=== PATIENT | female | born 1980 | race Caucasian/White ===

== ENCOUNTER 2018-09-12 11:08 | Inpatient (IN) ==
[2018-09-12] MEDS ORDERED: PHENERGAN IM ONE (12:20)
[2018-09-12] MEDS ORDERED: NS 1,000 ML IV ONE ×3 (12:20→16:54)
[2018-09-12] MEDS ORDERED: ZOFRAN IV ONE (14:18)
[2018-09-12] MEDS ORDERED: DILAUDID IV ONE (14:18)
[2018-09-12 14:21] LABS: BASO# 0.02 X1000 (0.0-0.2); BASO% 0.1 % (0.0-0.8); EOS# 0.01 X1000 (0.0-0.7); EOS% 0.1 % (0.0-10.0); HEMOGLOBIN 17.2 g/dL (12.0-16.0); IMM GRAN# 0.05 X1000 (0.0-0.04); IMM GRAN% 0.3 % (0.0-0.5); LYMPH# 1.03 X1000 (1.2-3.4); LYMPH% 6.3 % (20.5-51.1); MCH 30.7 PG (27-31); MCHC 33.1 g/dL (33-37); MCV 92.9 FL (81-99); MONO# 0.87 X1000 (0.11-0.59); MONO% 5.3 % (1.7-9.3); MPV 10.3 FL (7.4-10.4); NEUT# 14.39 X1000 (1.4-6.5); NEUT% 87.9 % (42.2-75.2); PLT 510 X1000 (130-400); RDW 13.9 % (11.5-14.5); WBC 16.37 X1000 (4.8-10.8)
[2018-09-12 14:53] LABS: ALBUMIN 5.2 g/dL (3.5-5.0); CALCIUM 9.7 mg/dL (8.8-10.2); CREATININE 5.7 mg/dL (0.5-0.9); POTASSIUM 3.4 mmol/L (3.5-5.1); TOTAL BILIRUBIN 0.83 mg/dL (0.20-1.00); TOTAL PROTEIN 10.6 g/dL (6.3-8.3)
--- NOTE | 2018-09-12 15:38 | PROVIDER DOCUMENTATION ---
This chart was entered by Janice Watkins Scribe, acting as scribe for Shashank Sorto MD. HPI-General Adult - General Chief Complaint: Nausea/Vomiting Stated Complaint: VOMITING Time Seen by Provider: 09/12/18 11:42 Source: patient Allergies/Adverse Reactions: Patient Allergies Allergy/AdvReac Type Severity Reaction Status Date / Time TIME RELEASE COATING Allergy Unknown Uncoded 09/09/18 20:15 Home Medications: Home Medication List Medication Instructions Recorded Confirmed Last Taken Type Hydrocodone/Acetaminophen [[place] 1 each PO PRN PRN 07/18/17 07/18/17 07/18/17 10:00 History 10-325 Tablet] 1/2 TAB L.acidoph,Paracasei, B.lactis 1 each PO QPM 07/18/17 07/18/17 07/17/17 History [Probiotic] Multivitamin [Multivitamins] 1 each PO QPM 07/18/17 07/18/17 07/17/17 History Norethindrone-E.estradiol-Iron 1 each PO QPM 07/18/17 07/18/17 07/17/17 History [Nik Fe 1.5-30 Tablet] Omeprazole 20 mg PO QPM 07/18/17 07/18/17 07/17/17 History Ondansetron HCl [Zofran] 4 mg PO PRN PRN 07/18/17 07/18/17 07/18/17 15:00 History Promethazine [Phenergan] 25 mg PO Q6H PRN PRN 07/18/17 07/18/17 07/18/17 15:30 History - History of Present Illness -Gen Adult Nature of Presenting Problems: 37 y/o female presents to ED with N/V, headache, body aches, and dehydration onset 4 days ago. Pt reports she was seen 3 days ago for same and given fluids. Pt states she felt better afterwards, but got worse again 2 days ago. 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 Pt is alert and oriented. Location of Pain/Injury: reports: generalized Pain Radiation: reports: no radiation Quality of Pain: reports: aching Severity: reports: mild, moderate Onset/Duration: reports: 4 days ago Timing: reports: still present, getting worse Context/Activities at Onset: reports: none Modifying Factors: improves with: nothing Associated Symptoms: reports: headaches, nausea, vomiting, other (body aches; dehydration) Similar Symptoms Previously?: No Recently seen or treated by another doctor?: Yes (ED for same 3 days ago) Review of Systems - Adult - REVIEW OF SYSTEMS - ADULT Constitutional: reports: other (dehydration). denies: chills, fever Eyes: reports: no symptoms reported Ears, Nose, Mouth & Throat: reports: no symptoms reported Cardiovascular: denies: chest pain, palpitations Respiratory: reports: no symptoms reported Gastrointestinal: reports: nausea, vomiting. denies: abdominal pain, diarrhea Genitourinary: reports: no symptoms reported Musculoskeletal: reports: other (body aches). denies: back pain, joint pain Integumentary: reports: no symptoms reported Neurological: reports: headache/migraines. denies: dizziness/vertigo, seizure Psychiatric: reports: no symptoms reported Endocrine: reports: no symptoms reported Hematologic/Lymphatic: reports: no symptoms reported Allergic/Immunologic: reports: no symptoms reported All Other Systems: Reviewed and Negative Past History - Adult - PAST MEDICAL HISTORY-ADULT Review of Records: reports: Old Records Reviewed, Nursing Assessment Review, Medications Reviewed Major Childhood Illnesses: reports: denies history Cardiovascular: reports: denies history Respiratory: reports: denies history Gastrointestinal: reports: denies history, colitis, IBS Obstetrical/Gynecological: reports: denies history Genitourinary: reports: denies history Musculoskeletal: reports: denies history Neurological: reports: denies history Psychiatric: reports: denies history Endocrine/Immune: reports: denies history Other Conditions: reports: denies history - PRIOR SURGERIES/PROCEDURES Surgical/Procedure History: reports: appendectomy, other (ileostomy) - IMMUNIZATION STATUS Childhood Immunizations: See Nurse Assessment Flu Vaccine: See Nurse Assessment - FAMILY HISTORY Family History: reviewed, not pertinent - SOCIAL HISTORY Smoking: non-smoker Substance Use: none/never Alcohol Use Frequency: occasionally Living Situation: family Physical Exam-General - PHYSICAL EXAM-ADULT Initial Vital Signs Reviewed: Yes - CONSTITUTIONAL General Appearance: appears well, alert, no apparent distress - EYES Eyes: PERRL/EOMI, pink conjunctivae - HEAD, EARS, NOSE, MOUTH & THROAT HENMT: normocephalic/atraumatic, moist mucous membranes, normal ENT inspection - NECK Neck: non-tender, full range of motion - RESPIRATORY Respiratory: chest non-tender, lungs clear, normal breath sounds - CARDIOVASCULAR Cardiovascular: tachycardia - GASTROINTESTINAL (ABDOMEN) Abdominal Exam: normal bowel sounds, non tender, soft, other (ileostomy in place) - MUSCULOSKELETAL Back Exam: normal inspection, no CVA tenderness Extremity: normal range of motion, non-tender, normal gait - SKIN Integumentary: normal color, warm/dry - NEUROLOGIC Neurologic: grossly normal - PSYCHIATRIC Psych/Mental Status: normal mood/affect, normal thought content, normal thought process Progress - PLAN OF CARE/RESULTS Progress/Plan/Lab Results: Vital Signs - 8 hr 09/12/18 11:31 09/12/18 11:45 09/12/18 12:13 Temperature 98.0 F Pulse Rate 93 H 135 H Respiratory Rate 18 22 Blood Pressure 151/141 O2 Sat by Pulse Oximetry 98 09/12/18 11:50 Influenza Screen - Final Nasopharyngeal Orders Category Date Time Status Nursing- Obtain EKG ONCE Care 09/12/18 12:18 Active CBC WITH ELECTRONIC DIFF [HEME] Stat Lab 09/12/18 11:36 Uncollected CMP [COMPREHENSIVE METABOLIC PANEL] [CHEM] Stat Lab 09/12/18 11:36 Uncollected Flu Swab [INFLUENZA SCREEN A/B] Stat Lab 09/12/18 11:50 Completed 0.9% Sodium Chloride Inj [Ns] 1,000 ml Med 09/12/18 12:20 Active IV 999 mls/hr Promethazine [Phenergan] Med 09/12/18 12:20 Discontinued 25 mg IM NOW ONE EKG [EKG] Stat Ther 09/12/18 12:18 Ordered Influenza A and B are negative. Laboratory Tests 09/12/18 09/12/18 13:56 13:56 WBC 16.37 H RBC 5.60 H Hgb 17.2 H Hct 52.0 H MCV 92.9 MCH 30.7 MCHC 33.1 RDW Std Deviation 13.9 Plt Count 510 H MPV 10.3 Immature Gran % (Auto) 0.3 Neut % (Auto) 87.9 H Lymph % (Auto) 6.3 L [place] % (Auto) 5.3 Eos % (Auto) 0.1 Baso % (Auto) 0.1 Immature Gran # (Auto) 0.05 H Neut # (Auto) 14.39 H Lymph # (Auto) 1.03 L [place] # (Auto) 0.87 H Eos # (Auto) 0.01 Baso # (Auto) 0.02 Sodium 131 L Potassium 3.4 L Chloride 87 L Carbon Dioxide 15 L Anion Gap 29 BUN 44 H Creatinine 5.7 H Estimated GFR/1.73 m2 8 BUN/Creatinine Ratio 8 Glucose 142 H Calculated Osmolality 276 Calcium 9.7 Total Bilirubin 0.83 AST 21 ALT 25 Alkaline Phosphatase 110 H Total Protein 10.6 H Albumin 5.2 H Globulin 5.4 Albumin/Globulin Ratio 1.0 Result Diagrams: 09/12/18 13:56 09/12/18 13:56 - EKG 1 Time of EKG reading by physician:: 12:26 EKG Read and Signed by:: Shashank Sorto EKG Interpretation (*Must complete 3 of following elements*): Abnormal Rate: 125 Rhythm: Sinus tach Felch: right QRS: other (R atrial enlargement; pulmonary disease pattern) [place] Interval: normal ST Wave: normal - CONSULTS/PCP/HOSPITALIST Notification #1 *Consult/PCP/Hospitalist*: Hospitalist- Dr. Leary Time Discussed: 15:37 Reason/Comments: Acute renal insufficiency Consult Disposition: Admit Departure - Departure Date of Disposition Decision: 09/12/18 Time of Disposition Decision: 15:05 DIAGNOSIS: Dehydration, Acute renal insufficiency, History of ulcerative colitis Vomiting Qualifiers: Vomiting type: unspecified Vomiting Intractability: intractable Nausea presence: unspecified Qualified Code(s): R11.10 - Vomiting, unspecified Disposition: ADMITTED INPATIENT 09 Certified Medical Emergency: Emergent Condition: Stable Additional Freetext Instructions: ED Follow Up Instructions: You have been treated by a care provider in the Emergency Department. These instructions are being provided to you so you can have an understanding of how to care for yourself upon discharge. Upon discharge from the Emergency Department, you are responsible for making arrangements for follow-up care by a physician of your choice. Take all prescribed medications as directed. Return to the Emergency Department immediately for any new or worsening s ymptoms. You may call the Physician Referral phone number at [phone] to obtain a list of Physicians who are taking new patients. Referrals and Follow-Ups: None,PCP [Primary Care Provider] - Discharge Education: Dehydration, Adult, Onyd-cl-Glbu, Vomiting, Adult, Ulcerative Colitis, Adult - Critical Care Note This patient required my direct & personal management of CC.: No Attestation - Physician/ JULIO CESAR Attestation Patient care was provided by Advanced Practice Provider:: No The physician spent face to face time with patient:: Yes Advanced Practice Provider documentation review:: Supervising physician onsite and consulted in the evaluation and care of this patient. The physician did have a face to face encounter with the patient. This chart was documented by the indicated scribe, (Janice Watkins, Katya) and accurately reflects the services I performed and decisions made by me, Shashank Sorto MD, as attested by the provider's signature.
--- NOTE | 2018-09-12 16:21 | Diag Imaging Result Doc PS360 ---
EXAM: FLAT/UPRIGHT ABD/1 VIEW CHEST 09/12/2018 HISTORY: intractable n/v TECHNIQUE: Flat and upright abdomen with AP chest, portable COMMENT: There is some gas in the distal colon. There is no evidence of gastric or small bowel dilatation. There is no evidence of organomegaly or mass. There is an apparent Jose's lobe of the liver. Compared to the previous study of 07/18/2017 there has been no significant change. There is hyperinflation of the lungs. There is apparent apical pleural thickening particularly on the left. The heart size and pulmonary vascularity are within normal limits. IMPRESSION: No evidence of acute disease. Electronically signed by Tesfaye Spann 09/12/2018 4:18 PM
[2018-09-12] MEDS ORDERED: ZOFRAN IV PRN (16:56)
[2018-09-12] MEDS ORDERED: MAGNESIUM SULFATE 2 GM/S.W.I. 2 GM/50 ML IVPB IV ONE ×2 (17:14→23:00)
--- NOTE | 2018-09-12 18:12 | Diag Imaging Result Doc PS360 ---
EXAM: US RENAL 2 (RETROPER) COMPLETE 09/12/2018 HISTORY: elder TECHNIQUE: Renal ultrasound COMMENT: The kidneys are slightly hyperechoic. There is no evidence of hydronephrosis or mass and no definite stones are present. The right kidney is 9.3 x 4.1 x 3.6 cm the left is 9.1 x 4.0 x 4.5 cm. The urinary bladder is not distended. IMPRESSION: Possible medical renal disease. No evidence of obstructive uropathy. Electronically signed by Tesfaye Spann 09/12/2018 6:09 PM
[2018-09-12] MEDS: HEPARIN SUBQ SCH (18:16)
[2018-09-12] MEDS: KLOR-CON PO SCH ×2 (18:16→23:40)
--- NOTE | 2018-09-12 22:52 | HISTORY AND PHYSICAL ---
CHIEF COMPLAINT: Nausea, vomiting, increased ileostomy output reported to be watery since about 4 days duration. HISTORY OF PRESENT ILLNESS: Ms. Sorto is 37 years old lady with past history of inflammatory bowel disease, ulcerative colitis diagnosed 20 years ago status post total colectomy, who comes in with complaints of nausea, vomiting, increase ileostomy output since 4 days. 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 She also has started having increased ileostomy output. Considering her concern, she came to the emergency room and she was given intravenous fluids and was sent home. However yesterday patient started eating solid food and her complaints recurred to an extent that she again had about 5 episodes of vomiting yesterday, 2 episodes today with increased ileostomy output. Her vomiting episodes contained undigested food particle, mucus and yellowish to greenish bile without any blood. Her ileostomy output was clear watery. However by the time she presented to emergency room today, it has started thickening up and appears greenish. She did not notice any blood in the ileostomy. The patient tried taking Imodium 1st and then Lomotil but her ileostomy output did not decrease significantly and so she considered coming to the emergency room knowing that she had previous such episodes in the past requiring intravenous fluid resuscitation and inpatient hospitalization. The patient denies fevers, chills, any blood in vomit or stool. 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 She denies known history of diabetes, coronary artery disease or cancer. REVIEW OF SYSTEMS: Positive for headache, sunken eyeballs, muscle cramps, abdominal cramps and decreased urine output. Negative for palpitation, negative for shortness of breath, negative for icterus. PAST MEDICAL HISTORY: 1. Ulcerative colitis diagnosed around year 1999 through colonoscopy, biopsy and blood test status post total colectomy and ileostomy about 15 years ago . 2. Past history of gastroesophageal reflux disease on proton pump inhibitors occasionally. 3. Denies past history of known coronary artery disease. 4. Denies past history of lung disease. 5. Denies past medical history of any liver disease . 6. Past history of similar episodes with acute renal failure requiring intravenous fluid resuscitation. SURGICAL HISTORY: She had total colectomy and ileostomy, she also had an abdominal wall abscess requiring surgical incision and drainage. FAMILY HISTORY: Significant for mother having history of ulcerative colitis . ALLERGIES: No known allergy. SOCIAL HISTORY: Denies any smoking or tobacco use. Occasional alcohol use. Denies recreational drug use. VITALS: Currently temperature of 98, pulse 110, respiratory rate 18, blood pressure 96/66, saturating 100% on room air. PHYSICAL EXAMINATION: Patient appears dehydrated. She has sunken eyeballs, cold clammy extremities with mild cyanosis of bilateral hands and legs. Oral cavity is dry. Air entry bilateral equal. No wheeze, rhonchi, crackles. S1, S2 normal. No murmur, rub, or gallop. Tachycardic, regular. ABDOMEN: Soft, nontender. She has an ileostomy which has greenish liquidy output and gas. Active bowel sounds. No lower extremity edema. NEUROLOGIC: Alert and oriented x3. LABS: Leukocytosis of 16,000, hemoglobin of 17.2, platelet count of 510,000, hyponatremia, hypokalemia, hypochloremia, increased anion gap metabolic acidosis, acute kidney injury. Microbiology, influenza screen is negative. IMAGING: Abdominal x-ray did not detect any evidence of acute disease . EKG is not in the chart yet. ASSESSMENT AND PLAN: 1. 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 She does not have any recent travel history or contaminated ingestion of food and she cooks her own meals. I will continue intravenous fluid resuscitation and monitor in [facility]. 2. Acute viral gastroenteritis with profound volume depletion. I will give her 3 L of intravenous fluid boluses and would start her on normal saline at 150 mL/h. The patient has poor intravenous access. However, she is hesitant on getting a central line access. I discussed the plan with the nursing team about again trying another IV access about 2 hours after intravenous fluid resuscitation. If she does not have good IV access we might have to consider central line at that point. The patient does not want to get urine catheter placed and I counseled her about keeping a close eye over input and output and monitoring her urine output. Once we have good IV access I will get the blood cultures. However, my suspicion for septicemia is less considering history and possible viral etiology. She did not have any fever, leukocytosis could be in the setting of acute viral gastroenteritis. 3. Acute tubular necrosis. Follow up with urine when she is able to make. Will follow up with urine electrolytes, renal ultrasound. Will follow up with frequent BMP and electrolytes, I will replete potassium and magnesium for profound hypokalemia. 4. Hemoconcentration with leukocytosis. Increase hemoglobin, increased platelet. I will follow up with CBC tomorrow. 5. Other problems. Hyponatremia, hypochloremia, increased anion gap metabolic acidosis in setting of acute kidney injury and acute tubular necrosis, aware. Chronic gastroesophageal reflux disease. I will start patient on pantoprazole. 6. Disposition. The patient will be transferred to [facility]. Plan of care discussed with the patient and her at bedside. All of the questions have been answered. cc: Kurt Leary MD
[2018-09-12] MEDS: NS 1,000 ML IV SCH ×2 (23:41→23:53)
[2018-09-13 00:41] LABS: CALCIUM 7.6 mg/dL (8.8-10.2); CREATININE 3.2 mg/dL (0.5-0.9); POTASSIUM 3.9 mmol/L (3.5-5.1)
[2018-09-13] MEDS: HEPARIN SUBQ SCH ×3 (03:29→19:26)
[2018-09-13 06:58] LABS: BASO# 0.01 X1000 (0.0-0.2); BASO% 0.1 % (0.0-0.8); EOS# 0.11 X1000 (0.0-0.7); EOS% 1.3 % (0.0-10.0); HEMATOCRIT 38.7 % (37.0-47.0); HEMOGLOBIN 12.8 g/dL (12.0-16.0); IMM GRAN# 0.03 X1000 (0.0-0.04); IMM GRAN% 0.3 % (0.0-0.5); LYMPH# 1.61 X1000 (1.2-3.4); LYMPH% 18.4 % (20.5-51.1); MCH 30.9 PG (27-31); MCHC 33.1 g/dL (33-37); MCV 93.5 FL (81-99); MONO# 0.75 X1000 (0.11-0.59); MONO% 8.6 % (1.7-9.3); MPV 10.2 FL (7.4-10.4); NEUT# 6.26 X1000 (1.4-6.5); NEUT% 71.3 % (42.2-75.2); PLT 331 X1000 (130-400); RBC 4.14 XMIL (4.2-5.4); RDW 13.4 % (11.5-14.5); WBC 8.77 X1000 (4.8-10.8)
[2018-09-13 07:38] LABS: MAGNESIUM 2.8 mg/dL (1.5-2.7)
[2018-09-13] MEDS: NS 1,000 ML IV SCH ×3 (08:29→21:47)
[2018-09-13] MEDS ORDERED: KLOR-CON PO ONE ×2 (09:33→19:45)
[2018-09-13 10:20] LABS: URINE SOURCE CLEAN CATCH
[2018-09-13 10:29] LABS: BILIRUBIN URINE NEGATIVE (NEGATIVE); BLOOD URINE SMALL (NEGATIVE); COLOR YELLOW; GLUCOSE URINE NEGATIVE (NEGATIVE); KETONE URINE NEGATIVE (NEGATIVE); LEUKOCYTES URINE MODERATE (NEGATIVE); NITRITE URINE NEGATIVE (NEGATIVE); PH URINE 6.5; PROTEIN URINE TRACE mg/dL (NEGATIVE); SP GRAVITY URINE 1.012; TURBIDITY URINE CLEAR (CLEAR); UR EPITHELIAL CELLS <10 /HPF (<10); URINE BACTERIA NEGATIVE /HPF; URINE RBC <10 /HPF (<10); URINE WBC <10 /HPF (<10); UROBILINOGEN URINE NORMAL (NORMAL)
--- NOTE | 2018-09-13 11:19 | PROGRESS NOTE ---
DATE: 09/13/2018 INTERVAL HISTORY: Her kidney function had started improving overnight. SUBJECTIVE: The patient is feeling significantly better today. She was able to go to the bathroom and come back. She asked if I could discontinue telemetry so that she can move around better. We discussed about her improving kidney function, improving electrolyte, improving blood counts. I answered all of her questions. Her is at bedside as well. OBJECTIVE: General: The patient does not appear in any acute distress. Vitals: Currently, temperature 98.2 degrees, pulse 85, respiratory rate 16, blood pressure 90/50, saturating 100% on room air. HEENT: Her eyeballs are no longer sunken. Her oral cavity is moist. Lungs: Air entry bilaterally equal. No wheeze, rhonchi, crackles. Cardiac: S1, S2 normal. Not tachycardic. No murmur, rub, or gallop. Abdomen: Soft. There is an ileostomy which has liquidy greenish output. Active bowel sounds. Extremities: No lower extremity edema. Skin: Turgor has increased as well. LABORATORIES: Suggestive of no leukocytosis with a WBC of 8000, hemoglobin of 12.8, platelet count of 331,000, normal coagulation profile. Electrolytes suggestive of hyponatremia, hypochloremia, which is better than yesterday. Resolution of hypokalemia, decreasing anion gap, improving bicarbonate, improving acute kidney injury, hypocalcemia, hypophosphatemia. MICROBIOLOGY: Urine culture is in lab. However, patient did not have any symptoms and urinalysis though had moderate leukocytes. I will not treat it since the patient was asymptomatic. ASSESSMENT AND PLAN: 1. Sepsis due to acute gastroenteritis, currently improving. Her tachycardia leukocytosis has improved. I will continue intravenous fluid resuscitation. Unfortunately, she was transferred to surgical floor rather than [facility] last night. Currently, she looks hemodynamically stable and I will monitor her on surgical floor. 2. Acute viral gastroenteritis with profound volume depletion. She received 3 L of intravenous fluid boluses yesterday. I will continue normal saline at 150 mL/hour. 3. Acute tubular necrosis likely in the setting of profound volume depletion and acute kidney injury. Continue intravenous fluid resuscitation and frequent monitoring of electrolytes with kidney function. 4. Profound electrolyte abnormality, including hyponatremia, hypokalemia, hypochloremia, hypomagnesemia, hypophosphatemia, being repleted. I will follow up with [facility]. OTHER PROBLEMS: Chronic GERD, aware. Patient was only taking intermittent proton pump inhibitors at home. I will continue morphine as needed for abdominal pain, heparin subcutaneous for deep vein thrombosis prophylaxis and p.r.n. Zofran. I will advance her diet to a full liquid diet today and will advance it further tomorrow if needed. Plan of care discussed with her. All of her questions have been answered satisfactorily. cc: Kurt Leary MD
[2018-09-13 11:53] LABS: UR CREAT RANDOM 130.8 mg/dL (11-20)
[2018-09-13 12:12] LABS: UR SODIUM < 10 mmoll
[2018-09-13 15:18] LABS: CALCIUM 7.6 mg/dL (8.8-10.2); CREATININE 1.5 mg/dL (0.5-0.9); POTASSIUM 3.3 mmol/L (3.5-5.1)
[2018-09-13] MEDS: MORPHINE IV PRN (21:54)
[2018-09-14] MEDS: HEPARIN SUBQ SCH ×2 (01:13→09:31)
[2018-09-14 03:07] LABS: CALCIUM 7.5 mg/dL (8.8-10.2); CREATININE 1.2 mg/dL (0.5-0.9); POTASSIUM 3.3 mmol/L (3.5-5.1)
[2018-09-14] MEDS: MORPHINE IV PRN (04:22)
[2018-09-14] MEDS: NS 1,000 ML IV SCH ×2 (04:23→10:59)
[2018-09-14 06:43] LABS: MAGNESIUM 1.8 mg/dL (1.5-2.7); PHOSPHORUS 1.3 mg/dL (2.7-4.5)
--- NOTE | 2018-09-14 08:07 | EKG Report ---
Test Performed on : 09/12/2018 12:21:34 PM Test Reason : TACHYCARDIA Blood Pressure : / mmHG Vent. Rate : 125 BPM Atrial Rate : 125 BPM P-R Int : 114 ms QRS Dur : 086 ms QT Int : 310 ms P-R-T Axes : 084 104 065 degrees QTc Int : 447 ms Sinus tachycardia. Right atrial enlargement Rightward axis Pulmonary disease pattern Abnormal ECG When compared with ECG of 09-SEP-2018 19:04, (Unconfirmed) Nonspecific T wave abnormality no longer evident in Inferior leads Unconfirmed Result
[2018-09-14] MEDS: K-PHOS PO SCH ×2 (09:27→13:05)
[2018-09-14] MEDS: KLOR-CON PO SCH ×2 (09:27→13:05)
[2018-09-14 14:48] LABS: CALCIUM 7.8 mg/dL (8.8-10.2); CREATININE 1.1 mg/dL (0.5-0.9); POTASSIUM 3.9 mmol/L (3.5-5.1)
[2018-09-14 15:44] VITALS: BP 107/70
--- NOTE | 2018-09-14 20:17 | DISCHARGE SUMMARY ---
ADMISSION DATE: 09/12/2018 DISCHARGE DATE: 09/14/2018 DISCHARGE DIAGNOSES: 1. Acute viral gastroenteritis. 2. Sepsis due to acute gastroenteritis. 3. Profound clinical volume depletion. 4. Acute tubular necrosis in the setting of profound volume depletion. 5. Found electrolyte abnormalities including hyponatremia, hypokalemia, hypochloremia, hypomagnesemia, hypophosphatemia. OTHER DIAGNOSES: 1. History of ulcerative colitis diagnosed in the year 1999 through colonoscopy biopsy and blood test status post total colectomy and ileostomy. 2. History of intermittent gastrointestinal reflux disease. 3. Previous history off profound volume depletion due to gastroenteritis leading to acute renal failure. DISCHARGE MEDICATIONS: 1. Norethindrone [*] 1 tablet at nighttime for control. 2. Lomotil 1 tablet p.o. 4 times a day as needed. 3. Multivitamin 1 tablet in the evening time. 4. Omeprazole 20 mg p.r.n. as needed for GERD. 5. Promethazine 25 mg p.o. q.6 hours p.r.n. for vomiting. 6. Probiotic 1 tablet at nighttime. 7. Zofran 4 mg sublingual as needed for nausea and vomiting. 8. Potassium phosphate [*]b.i.d. 6 tablets have been prescribed. 9. She has been given a prescription for basic metabolic panel and phosphorus levels to be drawn within 3 to 5 days of discharge. VITALS AT THE TIME OF DISCHARGE: Temperature 98.6 degrees, pulse 85, respiratory rate 16, blood pressure 102/67, saturating 100% on room air. PHYSICAL EXAMINATION: General: Does not appear in any acute distress. HEENT: Oral cavity is moist. Lungs: Air entry bilaterally equal. No wheeze, rhonchi, crackles. Cardiovascular: S1, S2 normal. No murmur, rub, or gallop. Not tachycardic. Abdomen: Soft, nontender. There is an ileostomy with liquidy greenish output in right lower quadrant with active bowel sounds. Extremities: No lower extremity edema. She has adequate skin turgor. SIGNIFICANT LABS DURING HOSPITAL ADMISSION: Her WBC was 16,000 on admission, which had improved to 8000 the next day. Her hemoglobin was 17.2 on admission, which had decreased to 12.8 on admission. Her platelets were 510,000 on admission, which had decreased to 330,000 at the time of discharge. On admission, her sodium was 135, chloride of 97, BUN of 44, creatinine of 5.7, GFR of 8, anion gap of 29, and carbon dioxide of 15. At the time of discharge, her sodium was 135, potassium 3.9, chloride of 105, carbon dioxide of 24, BUN of 12, anion gap of 6, and creatinine of 1.1. Her phosphorus was 1.3 for which she was given a prescription for phosphorus. HOSPITAL COURSE SUMMARY: Ms. Sorto is a 37-year-old lady who had presented with complaints of nausea, vomiting, headache and significantly increased ileostomy output of about 3 to 4 days duration. She was seen in the emergency room 3 days prior to presentation, was given intravenous fluids and was discharged home; however, after she resumed her diet, her condition had recurred to an extent that she started having muscle cramps and had to come back again to the emergency room. While in the emergency room, she was found to have profound leukocytosis due to hemoconcentration, profound metabolic derangement to an extent that her GFR was less than 10, and she was tachycardic. 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 She was admitted for intravenous volume resuscitation. No antibiotics were started with intravenous volume repletion with multiple boluses and continuous infusions. Her condition improved. Her electrolytes were repleted. At the time of discharge, she was able to tolerate soft diet without any nausea, vomiting, abdominal pain. Her electrolytes had significantly improved. Her kidney function had returned to almost normal. She was provided a prescription for basic metabolic panel and phosphorus level, was advised to get these levels drawn within 3 to 4 days and was advised to follow up with her outpatient provider. She was agreeable with the plan. The patient was discharged home. All of her questions have been answered. TIME SPENT: Less than 30 minutes were spent in discharging this patient. cc: Kurt Leary MD
== END 2018-09-14 16:08 | disposition home or self-care (01) | DRG 871 ==
LOC: ED 11:08 → 4N 11:09
PROVIDERS: ATTEND Internal Medicine
CPT/HCPCS: 74022; 76770; 80048; 80053; 81001; 81025; 82040; 82570; 82948; 83605; 83735; 83935; 84100; 84300; 84443; 85025; 85610; 87040; 87045; 87046; 87088; 87177; 87275; 87276; 87324; 87449; 87804; 88313; 93005; 96361; 96372; 96374; 96375; 99285; A9270; J1170; J1644; J2270; J2405; J2550; J3475; J7030; XXXXX